=== PATIENT | male | born 2000 | race Caucasian/White ===

== ENCOUNTER 2021-11-27 21:18 | Emergency (ER) | payer OTHER ==
[~2021-11-27] VITALS: Ht 172.7 cm; Wt 78.2 kg
[2021-11-27 21:30] VITALS: TEMP 97.2
[2021-11-27 22:15] LABS: HEMATOCRIT 42.5 % (42.0-52.0); HEMOGLOBIN 15.2 g/dl (13.5-18.0)
[2021-11-27 22:28] LABS: ALBUMIN 4.8 gm/dL (3.5-5.0); CALCIUM 9.9 mg/dL (8.4-10.2); CREATININE, serum 1.86 mg/dL (0.72-1.25); PHOSPHOROUS 4.4 mg/dL (2.3-4.7); POTASSIUM 4.1 mmol/L (3.5-4.5)
[2021-11-27 22:35] LABS: TROPONIN-I 0.023 ng/mL (0.00-0.033)
[2021-11-28 00:30] VITALS: BP 144/78; PULSE 76
== END 2021-11-28 00:30 | disposition home or self-care (01) ==
LOC: COL.ER 21:18
PROVIDERS: Emergency Medicine
DX: N28.9 Disorder of kidney and ureter, unspecified (principal); R07.89 Other chest pain
CPT/HCPCS: J1885; J7030